=== PATIENT | female | born 1965 | race Caucasian/White ===

== ENCOUNTER 2016-10-23 23:38 | Emergency (ER) | payer MEDICAID ==
[~2016-10-23] VITALS: Ht 152.4 cm; Wt 88.0 kg
[2016-10-24] MEDS ORDERED: IPRATROPIUM/ALBUTEROL 0.5-3(2.5)MG/3ML NEB HHN ONE (05:30)
[2016-10-24 06:15] VITALS: BP 126/76
== END 2016-10-24 06:52 | disposition home or self-care (01) ==
LOC: ER 23:40
DX: J45.909 Unspecified asthma, uncomplicated (principal); R03.0 Elevated blood-pressure reading, without diagnosis of hypertension; E11.9 Type 2 diabetes mellitus without complications
CPT/HCPCS: 94640; 99283; J7030; Z7610; J7620